=== PATIENT | female | born 1995 ===

== ENCOUNTER 2016-08-17 23:26 | Emergency (ER) | payer OTHER ==
[2016-08-18 00:09] VITALS: BP 118/63; PULSE 58; RESP 18; TEMP 98.1; O2SAT 100
--- NOTE | 2016-08-18 00:43 | ED PDOC ---
Arrival/HPI <Jn Mendez - Last Filed: 08/18/16 01:01> - General Historian: Patient <Rin Natarajan PA-C - Last Filed: 08/18/16 01:06> - General Chief Complaint: Back Pain Time Seen by Provider: 08/18/16 00:23 - History of Present Illness Narrative History of Present Illness (Text): 08/18/16 00:43 21-year-old female presents to the emergency room for low back pain for the past several days, reports that she did a home test today which was positive. Patient states that her last menstrual period was on July 13. Otherwise she denies any back pain, fever, chills, nausea, vomiting, urinary symptoms, vaginal bleeding or discharge. PMD none (Rin Natarajan PA-C) Past Medical History - Provider Review Nursing Documentation Reviewed: Yes - Cardiac Hx Heart Murmur: Yes - Pulmonary Hx Respiratory Disorders: No - Neurological Hx Neurological Disorder: No - HEENT Hx HEENT Disorder: No - Renal Hx Renal Disorder: No - Endocrine/Metabolic Hx Endocrine Disorders: No - Hematological/Oncological Hx Blood Disorders: No - Integumentary Hx Dermatological Disorder: No - Musculoskeletal/Rheumatological Hx Musculoskeletal Disorders: No - Gastrointestinal Hx Gastrointestinal Disorders: No - Genitourinary/Gynecological Hx Genitourinary Disorders: No - Psychiatric Hx Psychophysiologic Disorder: No Hx Substance Use: No - Surgical History Hx Tonsillectomy: Yes <Rin Natarajan PA-C - Last Filed: 08/18/16 01:06> Family/Social History - Physician Review Nursing Documentation Reviewed: Yes Family/Social History: No Known Family HX Smoking Status: Never Smoked Hx Alcohol Use: Yes Frequency of alcohol use: Socially Hx Substance Use: No <Rin Natarajan PA-C - Last Filed: 08/18/16 01:06> Allergies/Home Meds <Jn Mendez - Last Filed: 08/18/16 01:01> <Rin Natarajan PA-C - Last Filed: 08/18/16 01:06> Allergies/Adverse Reactions: Allergies No Known Allergies Allergy (Verified 08/18/16 00:09) Review of Systems - Review of Systems Constitutional: Normal. absent: Fatigue, Weight Change, Fevers Respiratory: Normal. absent: SOB, Cough, Sputum Cardiovascular: Normal. absent: Chest Pain, Palpitations, Edema Gastrointestinal: Normal. absent: Abdominal Pain, Stool Changes, Appetite Changes Genitourinary Female: Normal. absent: Dysuria, Frequency, Hematuria Musculoskeletal: Normal, Back Pain. absent: Arthralgias, Neck Pain Skin: Normal. absent: Rash, Pruritis, Skin Lesions <Rin Natarajan PA-C - Last Filed: 08/18/16 01:06> Physical Exam <Jn Mendez - Last Filed: 08/18/16 01:01> <Rin Natarajan PA-C - Last Filed: 08/18/16 01:06> - Physical Exam Narrative Physical Exam (Text): 08/18/16 00:42 GENERAL APPEARANCE: Patient is awake, alert, oriented x 3, in no acute distress. SKIN: Warm, dry; (-) cyanosis. EYES: (-) conjunctival pallor. ENMT: Mucous membranes moist. NECK: (-) tenderness, (-) stiffness, (-) lymphadenopathy. CHEST AND RESPIRATORY: (-) rales, (-) rhonchi, (-) wheezes; breath sounds equal bilaterally. HEART AND CARDIOVASCULAR: (-) irregularity; (-) murmur, (-) gallop. ABDOMEN AND GI: Soft; (-) tenderness. BACK: (-) midline or paravertebral tenderness, (-) CVA tenderness. EXTREMITIES: (-) deformity. NEURO AND PSYCH: Mental status as above; (-) focal findings. (Rin Natarajan PA-C) Vital Signs Temp Pulse Resp BP Pulse Ox 08/18/16 00:05 98.1 F 58 L 18 118/63 100 Medical Decision Making <Jn Mendez - Last Filed: 08/18/16 01:01> - Lab Interpretations I have reviewed the lab results: Yes <Rin Natarajan PA-C - Last Filed: 08/18/16 01:06> ED Course and Treatment: 08/18/16 00:41 21-year-old female presents to the emergency room for low back pain for the past several days, reports that she did a home test today which was positive. Based on history and physical to rule out UTI, consider musculoskeletal back pain. Uhcg (+). Plan - Urinalysis - Urine culture 08/18/16 01:03 Urinalysis shows no acute infection, urine culture sent. On reevaluation, patient is resting in bed comfortably in no acute distress. She still reports no abdominal pain or vaginal bleeding at this time. Urine results discussed with the patient in great detail. Patient advised to follow-up with an OB doctor in the next 2 days for reevaluation and follow-up. Prescription for vitamins prescribed to the patient and advised to only take Tylenol as needed for pain. Otherwise instructed to return to the ER at any time for any new or worsening symptoms. Patient states she fully agrees with and understands discharge instructions. States that she agrees with the plan and disposition. Verbalized and repeated discharge instructions and plan. I have given the patient opportunity to ask any additional questions. Follow up with OB physician in 1-2 days without fail. Advised to take medication as prescribed. Return to the emergency room at any time for any new or worsening symptoms. (Rin Natarajan PA-C) - Lab Interpretations Lab Results: Lab Results 08/18/16 00:10: Urine Color Yellow, Urine Appearance Clear, Urine pH 7.5, Ur Specific [place] 1.015, Urine Protein Negative, Urine Glucose (UA) Negative, Urine Ketones Negative, Urine Blood Negative, Urine Nitrate Negative, Urine Bilirubin Negative, Urine Urobilinogen 0.2, Ur Leukocyte Esterase Negative - PA / RENAL DIETITIAN / Resident Statement DEVON has reviewed & agrees with the documentation as recorded. DEVON has examined the patient and agrees with the treatment plan. <Jn Mendez - Last Filed: 08/18/16 01:01> - PA / RENAL DIETITIAN / Resident Statement DEVON has reviewed & agrees with the documentation as recorded. <Rin Natarajan PA-C - Last Filed: 08/18/16 01:06> Disposition/Present on Arrival <Jn Mendez - Last Filed: 08/18/16 01:01> - Present on Arrival Any Indicators Present on Arrival: No History of DVT/PE: No History of Uncontrolled Diabetes: No Urinary Catheter: No History of Decub. Ulcer: No History Surgical Site Infection Following: None - Disposition Have Diagnosis and Disposition been Completed?: Yes Disposition Time: 01:04 Patient Plan: Discharge <Rin Natarajan PA-C - Last Filed: 08/18/16 01:06> - Disposition Diagnosis: Back pain, Patient Problems: Current Active Problems Problem Status Onset Back pain Acute Acute Condition: STABLE Discharge Instructions (ExitCare): Back Pain (ED), First Trimester ( ED) Print Language: CHILEAN Additional Instructions: Thank you for letting us take care of you today. You were treated for back pain , . The emergency medical care you received today was directed at your acute symptoms. If you were prescribed any medication, please fill it and take as directed. It may take several days for your symptoms to resolve. Return to the Emergency Department if your symptoms worsen, do not improve, or if you have any other problems. Please contact OB doctor in 2 days for re-evaluation and follow up. Bring any paperwork you were given at discharge with you along with any medications you are taking to your follow up visit. Our treatment cannot replace ongoing medical care by a primary care provider (PCP) outside of the emergency department. Thank you for allowing the [facility] team to be part of your care today. Prescriptions: Multivit/Folic Acid/I [] 1 tab PO DAILY #30 tab Referrals: PCP,NO [Primary Care Provider] - Follow up with primary Lizeth Landrum MD [Staff Provider] - Follow up with primary Forms: WORK NOTE
[2016-08-18 00:46] LABS: PH,URINE 7.5 (4.7-8.0); URINE BILIRUBIN NEGATIVE (NEGATIVE); URINE BLOOD NEGATIVE (NEGATIVE); URINE GLUCOSE (UA) NEGATIVE (NEGATIVE); URINE LEUKOCYTE ESTERASE NEGATIVE Leu/uL (NEGATIVE); URINE NITRATE NEGATIVE (NEGATIVE); URINE PROTEIN NEGATIVE mg/dL (<30 mg/dL); URINE UROBILINOGEN 0.2 E.U./dL (<1 E.U./dL)
[2016-08-18 00:56] LABS: URINE APPEARANCE CLEAR (CLEAR); URINE COLOR YELLOW (YELLOW)
== END 2016-08-18 01:16 | disposition home or self-care (01) ==
LOC: ED 23:26
DX: O26.891 Other specified pregnancy related conditions, first trimester (principal); M54.9 Dorsalgia, unspecified; Z3A.00 Weeks of gestation of pregnancy not specified

== ENCOUNTER 2016-09-03 15:36 | Emergency (ER) | payer OTHER ==
[2016-09-03 15:45] VITALS: BMI 26.2
[2016-09-03 15:50] VITALS: TEMP 98.1
--- NOTE | 2016-09-03 16:18 | ED PDOC ---
Arrival/HPI <Thor Nguyen - Last Filed: 09/03/16 19:19> <Pete Truong - Last Filed: 09/03/16 20:18> - General Chief Complaint: Female Genitourinary Time Seen by Provider: 09/03/16 15:48 - History of Present Illness Narrative History of Present Illness (Text): 09/03/16 16:15 CC: vaginal bleeding This patient is a 21yo F who states her LMP was July 12, found out she was August 17, went to OBGYN visit today, states she has been spotting blood for the past 2 days. No cramps. No signs of products in the toilet, or blood in the toilet. Denies all other symptoms; denies fevers/chills, [place], CP , SOB, abdominal pain, N/V/D/ dysuria/freq/discharge/previous STI or lower extremity pain/swelling. States this is a desired . Pmhx: None; states has heart murmor; not followed by cardiology Meds: vitamins Surgeries: None Allergies: None FamHx: denies Social: Lives at home, not in school, denies smoking/etoh/ilicit drugs 09/03/16 16:17 (Thor Nguyen) Past Medical History - Provider Review Nursing Documentation Reviewed: Yes - Travel History Have you recently traveled outside [place] w/in the past 3 mons?: No - Past History Past History: No Previous - Infectious Disease Hx of Infectious Diseases: None - Cardiac Hx Cardiac Disorders: Yes Hx Heart Murmur: Yes - Pulmonary Hx Respiratory Disorders: No - Neurological Hx Neurological Disorder: No - HEENT Hx HEENT Disorder: No - Renal Hx Renal Disorder: No - Endocrine/Metabolic Hx Endocrine Disorders: No - Hematological/Oncological Hx Blood Disorders: No - Integumentary Hx Dermatological Disorder: No - Musculoskeletal/Rheumatological Hx Musculoskeletal Disorders: No - Gastrointestinal Hx Gastrointestinal Disorders: No - Genitourinary/Gynecological Hx Genitourinary Disorders: No - Psychiatric Hx Psychophysiologic Disorder: No Hx Substance Use: No - Surgical History Hx Tonsillectomy: Yes - Anesthesia Hx Anesthesia: Yes Hx Anesthesia Reactions: No <Thor Nguyen - Last Filed: 09/03/16 19:19> Family/Social History - Physician Review Nursing Documentation Reviewed: Yes Family/Social History: No Known Family HX Smoking Status: Never Smoked Hx Alcohol Use: Yes Hx Substance Use: No <Thor Nguyen - Last Filed: 09/03/16 19:19> Allergies/Home Meds <Thor Nguyen - Last Filed: 09/03/16 19:19> <Pete Truong - Last Filed: 09/03/16 20:18> Allergies/Adverse Reactions: Allergies No Known Allergies Allergy (Verified 09/03/16 15:45) Review of Systems - Review of Systems Constitutional: absent: Fatigue, Weight Change Eyes: absent: Vision Changes, Photophobia ENT: absent: Hearing Changes, Tinnitus Respiratory: absent: SOB, Cough Cardiovascular: absent: Chest Pain, Palpitations Gastrointestinal: Other (vaginal bleeding). absent: Abdominal Pain Genitourinary Female: Vaginal Bleeding. absent: Dysuria, Frequency Musculoskeletal: absent: Arthralgias Skin: absent: Rash, Pruritis Neurological: absent: Headache, Dizziness Endocrine: absent: Diaphoresis Hemo/Lymphatic: absent: Adenopathy Psychiatric: absent: Anxiety, Depression <Thor Nguyen - Last Filed: 09/03/16 19:19> Physical Exam Temperature: Afebrile Blood Pressure: Normal Pulse: Regular Respiratory Rate: Normal Appearance: Positive for: Well-Appearing, Non-Toxic, Comfortable Pain Distress: None Mental Status: Positive for: Alert and Oriented X 3 - Systems Exam Head: Present: Atraumatic Pupils: Present: PERRL Extroacular Muscles: Present: EOMI Conjunctiva: Present: Normal Mouth: Present: Moist Mucous Membranes Neck: Present: Normal Range of Motion Respiratory/Chest: Present: Clear to Auscultation, Good Air Exchange Cardiovascular: Present: Regular Rate and Rhythm, Murmurs (VSD type murmur ) Abdomen: Present: Normal Bowel Sounds. No: Tenderness, Distention Genitourinary/Pelvic Exam: Present: Normal External Genitalia, Cervical os Closed, Other (with female custom ski maker present, wonderful nurse Judy ). No: Vaginal Discharge, Vaginal Bleeding, Vaginal Lesions, Adenexal Tenderness, Adenexal Mass, Cervical Motion Tendernes, Odor Upper Extremity: Present: Normal Inspection. No: Cyanosis, Edema Lower Extremity: Present: Normal Inspection. No: Edema, CALF TENDERNESS Neurological: Present: GCS=15, CN II-XII Intact, Speech Normal Skin: Present: Warm Psychiatric: Present: Alert, Oriented x 3 <Thor Nguyen - Last Filed: 09/03/16 19:19> Vital Signs Reviewed: Yes <Pete Truong - Last Filed: 09/03/16 20:18> Vital Signs Temp Pulse Resp BP Pulse Ox 09/03/16 19:00 74 17 110/80 100 09/03/16 17:50 70 18 105/70 99 09/03/16 15:48 98.1 F 72 19 102/66 98 Medical Decision Making <Thor Nguyen - Last Filed: 09/03/16 19:19> <Pete Truong - Last Filed: 09/03/16 20:18> ED Course and Treatment: 09/03/16 16:20 Ultrasound Transvag ordered Pelvic exam unremarkable, no blood noted, cervical os closed, no adenexal or cervical motion tenderness noted Type and Screen, CBC, CMP, UA, Urine GC/chlym, Preg Test and Quantitative HCg ordered Bedside ultrasound did not reveal IUP; however 8 week not unusual for that; ovaries visualized with no cysts Reassses and disposition 09/03/16 17:38 Ultrasound shows intrauterine at 6weeks 4 days with strong heart beat at 145bpm UA shows UTI; will give Keflex here 500mg PO Advised to take keflex 500mg PO BID for 5 days total f/u w/ OBGYn as needed patient education given all questions answered case discussed with Dr. truong; patient is stable for discharge home Type and Screen showed A+ blood no rhogam is needed 09/03/16 19:07 (Thor Nguyen) A 21 year old female with vaginal spotting in . In agreement with resident note, which includes further HPI details. Patient was seen and evaluated with resident, came up with plan and treatment together. DDx: Threatened vs Miscarriage Patient's ultrasound reviewed. T&S A+. Patient comfortable and has no pain. She will f/u with her obgyn this week. (Pete Truong) - Lab Interpretations Lab Results: 09/03/16 16:30 09/03/16 16:30 Lab Results 09/03/16 18:27: Blood Type Confirm A POSITIVE 09/03/16 16:30: Sodium 137, Potassium 4.3, Chloride 103, Carbon Dioxide 24, Anion Gap 14, BUN 6 L, Creatinine 0.6, Est GFR ( Amer) > 60, Est GFR (Non -Af Amer) > 60, Random Glucose 88, Calcium 9.1, Total Bilirubin 0.7, AST 26, ALT 27, Alkaline Phosphatase 55, Total Protein 7.3, Albumin 4.0, Globulin 3.3, Albumin/Globulin Ratio 1.2 09/03/16 16:30: WBC 7.8, RBC 4.32, Hgb 13.3, Hct 37.7, MCV 87.3, MCH 30.8, MCHC 35.3, RDW 12.6, Plt Count 190, MPV 10.3, Gran % 75.1 H, Lymph % (Auto) 17.9 L, Kay % (Auto) 6.0, Eos % (Auto) 0.9 L, Baso % (Auto) 0.1, Gran # 5.83, Lymph # 1.4, Kay # 0.5, Eos # 0.1, Baso # 0.01 09/03/16 16:30: Blood Type A POSITIVE, Antibody Screen Negative, BBK History Checked No verified bt 09/03/16 16:30: Beta HCG, Quant 66537.00 H 09/03/16 16:30: Urine Color Yellow, Urine Appearance Clear, Urine pH 6.0, Ur Specific [place] <= 1.005, Urine Protein Negative, Urine Glucose (UA) Negative, Urine Ketones Negative, Urine Blood Small H, Urine Nitrate Negative, Urine Bilirubin Negative, Urine Urobilinogen 0.2, Ur Leukocyte Esterase Trace H, Urine RBC 0 - 2, Urine WBC 0 - 2, Ur Epithelial Cells 0 - 2, Urine Bacteria Neg , Urine HCG, Qual Positive - RAD Interpretation Radiology Orders: 09/03/16 16:11 OB TRANSVAGINAL [US] Stat - Medication Orders Current Medication Orders: Discontinued Medications Cephalexin Monohydrate (Keflex) 500 mg PO STAT STA PRN Reason: Protocol Stop: 09/03/16 17:34 Last Admin: 09/03/16 18:00 Dose: 500 mg <Thor Nguyen - Last Filed: 09/03/16 19:19> - PA / GENERAL ASSEMBLER / Resident Statement / has reviewed & agrees with the documentation as recorded. MD/ has examined the patient and agrees with the treatment plan. - Scribe Statement The provider has reviewed the documentation as recorded by the Scribe <Pete Truong - Last Filed: 09/03/16 20:18> - Scribe Statement Urmila Recinos Provider Scribe Attestation: All medical record entries made by the Scribe were at my direction and personally dictated by me. I have reviewed the chart and agree that the record accurately reflects my personal performance of the history, physical exam, medical decision making, and the department course for this patient. I have also personally directed, reviewed, and agree with the discharge instructions and disposition. (Peet Truong) Disposition/Present on Arrival - Present on Arrival Any Indicators Present on Arrival: No History of DVT/PE: No History of Uncontrolled Diabetes: No Urinary Catheter: No History of Decub. Ulcer: No History Surgical Site Infection Following: None - Disposition Have Diagnosis and Disposition been Completed?: Yes Disposition Time: 17:41 Patient Plan: Discharge <Thor Nguyen - Last Filed: 09/03/16 19:19> <Pete Truong - Last Filed: 09/03/16 20:18> - Disposition Diagnosis: UTI (urinary tract infection) Disposition: HOME/ ROUTINE Patient Problems: Current Active Problems Problem Status Onset UTI (urinary tract infection) Acute Condition: FAIR Additional Instructions: Please take your medication as indicated; Keflex; take one pill twice a day for a total of 5 days Please make sure to follow up with OBGYN as indicated If you continue to have vaginal bleeding or spotting and intense stomach cramps please go to the closest ER Prescriptions: Cephalexin [cephalexin] 500 mg PO BID #10 cap Forms: [employer] (Austrian)
[2016-09-03 17:21] LABS: URINE BILIRUBIN NEGATIVE (NEGATIVE); URINE BLOOD SMALL (NEGATIVE); URINE GLUCOSE (UA) NEGATIVE (NEGATIVE); URINE LEUKOCYTE ESTERASE TRACE Leu/uL (NEGATIVE); URINE NITRATE NEGATIVE (NEGATIVE); URINE PROTEIN NEGATIVE mg/dL (<30 mg/dL); URINE UROBILINOGEN 0.2 E.U./dL (<1 E.U./dL)
[2016-09-03 17:24] LABS: BASO # 0.01 K/mm3 (0.0-2.0); BASO % 0.1 % (0.0-3.0); EOS # 0.1 (0.0-0.7); EOS % 0.9 % (1.5-5.0); GRAN # 5.83 (1.4-6.5); GRAN % 75.1 % (50.0-68.0); HEMOGLOBIN 13.3 gm/dL (12.0-16.0); LYMPH # 1.4 (1.2-3.4); LYMPH % 17.9 % (22.0-35.0); MEAN CELL VOLUME 87.3 fL (80.0-105.0); MEAN CORPUSCULAR HEMOGLOBIN 30.8 pg (25.0-35.0); MEAN CORPUSCULAR HGB CONC 35.3 g/dl (31.0-37.0); MEAN PLATELET VOLUME 10.3 fl (7.0-11.0); MONO # 0.5 (0.1-0.6); PLATELET COUNT 190 10^3/uL (120.0-450.0); RBC 4.32 10^6/uL (3.5-6.1); RED CELL DISTRIBUTION WIDTH 12.6 % (11.5-14.5); WHITE BLOOD COUNT 7.8 10^3/ul (4.5-11.0)
[2016-09-03 17:25] LABS: ALB/GLOB RATIO 1.2 (1.1-1.8); ALT/SGPT 27 U/L (7-56); AST/SGOT 26 U/L (15-39); BLOOD UREA NITROGEN 6 mg/dL (7-21); CALCIUM 9.1 mg/dL (8.4-10.5); GFR AFRICAN-AMERICAN > 60; GFR NON-AFRICAN AMERICAN > 60
[2016-09-03 17:26] LABS: URINE APPEARANCE CLEAR (CLEAR); URINE COLOR YELLOW (YELLOW)
--- NOTE | 2016-09-03 17:30 | US ---
Indication: Bleeding Comparison: None available Technique: Transvaginal pelvic ultrasound Findings: The uterus measures approximately 10.2 x 5.2 x 6.7 cm. Anteverted. Cervix length measures approximately 4.0 cm. There is a single intrauterine fetus present. 2 mm yolk sac. The gestational sac measures 2.1 cm and is compatible with a gestational age of 6 weeks 4 days. The crown-rump length measures 0.6 cm and is compatible with a gestational age of 6 weeks 3 days. There is heart motion which measured 145 BPM. The right ovary measures 3.1 x 1.9 x 2.4 cm. The left ovary measures 3.4 x 1.4 x 3.0 cm. Blood flow was demonstrated to both ovaries. Impression: Live single intrauterine with estimated gestational age 6 weeks 4 days. heart rate 145 bpm. Advise an anomaly screen at 16-18 weeks gestational age
[2016-09-03 17:40] LABS: HCG,QUALITATIVE URINE POSITIVE (NEGATIVE); URINE BACTERIA NEG (NEG); URINE EPITHELIAL CELLS 0 - 2 /hpf (0-5); URINE RBC 0 - 2 /hpf (0-2); URINE WBC 0 - 2 /hpf (0-6)
[2016-09-03 19:43] VITALS: BP 110/80; PULSE 74; RESP 17; O2SAT 100
== END 2016-09-03 19:00 | disposition home or self-care (01) ==
LOC: ED 15:36
DX: O23.41 Unspecified infection of urinary tract in pregnancy, first trimester (principal); Z3A.01 Less than 8 weeks gestation of pregnancy

== ENCOUNTER 2016-09-08 18:34 | Emergency (ER) | payer OTHER ==
[2016-09-08 18:52] VITALS: BMI 26.0
[2016-09-08 18:58] VITALS: TEMP 97.9
--- NOTE | 2016-09-08 19:32 | ED PDOC ---
Arrival/HPI <Tohr Nguyen - Last Filed: 09/08/16 21:18> <Jn Mendez - Last Filed: 09/08/16 21:30> - General Chief Complaint: Female Genitourinary Time Seen by Provider: 09/08/16 19:01 - History of Present Illness Narrative History of Present Illness (Text): 09/08/16 19:29 CC: vaginal bleeding This patient is a 21yo F who states her LMP was July 12, found out she was August 17. She was seen last week in the ED by myself, had a pelvic exam which revealed a closed cervix, no products of conception in the vaginal vault, and a normal transvaginal ultrasound. She was instructed to follow up with her OBGYN upon discharge. However she states that since today she has been bleeding like her normal period, and was previously spotting. No cramps. No signs of products in the toilet, or blood in the toilet. Denies all other symptoms; denies fevers/chills, [place], CP, SOB, abdominal pain, N/V/D/ dysuria/freq /discharge/previous STI or lower extremity pain/swelling. States this is a desired . Pmhx: None; states has heart murmor; not followed by cardiology Meds: vitamins Surgeries: None Allergies: None FamHx: denies Social: Lives at home, not in school, denies smoking/etoh/ilicit drugs (Thor Nguyen) Past Medical History - Provider Review Nursing Documentation Reviewed: Yes - Travel History Have you recently traveled outside [place] w/in the past 3 mons?: No - Past History Past History: No Previous - Infectious Disease Hx of Infectious Diseases: None - Cardiac Hx Cardiac Disorders: Yes Hx Heart Murmur: Yes - Pulmonary Hx Respiratory Disorders: No - Neurological Hx Neurological Disorder: No - HEENT Hx HEENT Disorder: No - Renal Hx Renal Disorder: No - Endocrine/Metabolic Hx Endocrine Disorders: No - Hematological/Oncological Hx Blood Disorders: No - Integumentary Hx Dermatological Disorder: No - Musculoskeletal/Rheumatological Hx Musculoskeletal Disorders: No - Gastrointestinal Hx Gastrointestinal Disorders: No - Genitourinary/Gynecological Hx Genitourinary Disorders: No - Psychiatric Hx Psychophysiologic Disorder: No Hx Substance Use: No - Surgical History Hx Tonsillectomy: Yes - Anesthesia Hx Anesthesia: Yes Hx Anesthesia Reactions: No Hx Malignant Hyperthermia: No <Thor Nguyen - Last Filed: 09/08/16 21:18> Family/Social History - Physician Review Nursing Documentation Reviewed: Yes Family/Social History: No Known Family HX Smoking Status: Never Smoked Hx Alcohol Use: Yes Hx Substance Use: No <GregoriaSeanricoThor jimenez - Last Filed: 09/08/16 21:18> Allergies/Home Meds <LeonardoricoThor - Last Filed: 09/08/16 21:18> <Jn Mendez - Last Filed: 09/08/16 21:30> Allergies/Adverse Reactions: Allergies No Known Allergies Allergy (Verified 09/03/16 15:45) Review of Systems - Physician Review All systems were reviewed & negative as marked: Yes - Review of Systems Constitutional: absent: Fatigue, Weight Change Eyes: absent: Vision Changes, Photophobia ENT: absent: Hearing Changes Respiratory: absent: SOB, Cough Cardiovascular: absent: Chest Pain Gastrointestinal: absent: Abdominal Pain (blood from vagina) Genitourinary Female: absent: Dysuria, Frequency Musculoskeletal: absent: Arthralgias Skin: absent: Rash, Pruritis Neurological: absent: Headache Endocrine: absent: Diaphoresis Hemo/Lymphatic: absent: Adenopathy Psychiatric: absent: Anxiety, Depression <GregoriaSeanricoThor jimenez - Last Filed: 09/08/16 21:18> Physical Exam Temperature: Afebrile Blood Pressure: Normal Pulse: Regular Respiratory Rate: Normal Appearance: Positive for: Well-Appearing, Non-Toxic Pain Distress: None Mental Status: Positive for: Alert and Oriented X 3 - Systems Exam Head: Present: Atraumatic Pupils: Present: PERRL Extroacular Muscles: Present: EOMI Conjunctiva: Present: Normal Mouth: Present: Moist Mucous Membranes Neck: Present: Normal Range of Motion Respiratory/Chest: Present: Clear to Auscultation, Good Air Exchange Cardiovascular: Present: Regular Rate and Rhythm. No: Murmurs Abdomen: Present: Normal Bowel Sounds. No: Tenderness, Distention Genitourinary/Pelvic Exam: Present: Normal External Genitalia, Vaginal Bleeding , Cervical os Closed. No: Vaginal Discharge, Vaginal Lesions, Adenexal Tenderness, Adenexal Mass, Cervical Motion Tendernes, Odor, Other (with female assessment expert present, her nurse Scarlet, a pelvic exam was performed. Bleeding was noted from the OS, no signs of discharge, OS was closed, no adnexal tenderness, no cervical motion tenderness) Back: No: CVA Tenderness Upper Extremity: Present: Normal Inspection. No: Cyanosis, Edema Lower Extremity: Present: Normal Inspection. No: Edema Neurological: Present: GCS=15, CN II-XII Intact Skin: Present: Warm <Thor Nguyen - Last Filed: 09/08/16 21:18> Medical Decision Making <Thor Nguyen - Last Filed: 09/08/16 21:18> <Jn Mendez - Last Filed: 09/08/16 21:30> ED Course and Treatment: 09/08/16 19:33 Patient was treated for UTI with Kefflex will order CBC CMP UA type and screen will do pelvic and order transvaginal US DDx: Threatened vs missed vs inevitable 09/08/16 19:45 09/08/16 20:42 CBC and CMP unchanged from previous visit no anemia pending type and screen pending ultrasound read patient is comfortably sitting in bed in no acute distress with VSS 09/08/16 21:13 UA shows Leuk Esterase; patient is still on keflex from previous d/c will continue this 09/08/16 21:15 Ultrasound showed: Gestation: Single live intrauterine gestation. heart rate of 142 beats per minute. Vilonia-rump length of 1.44 cm, correlating with gestational age of 7 weeks 5 days. Uterus/cervix: No subchorionic hemorrhage. No cervical dilatation or effacement. Ovaries: Normal ovaries. No adnexal masses. Free fluid: No significant free fluid. IMPRESSION: 1. Single live intrauterine gestation. 2. Incidental/non-acute findings are described above 09/08/16 21:18 The patient is stable for discharge as per Dr. Mendez The patient is agreeable with d/c She has an OBGYN appointment tomorrow She finishes her antibiotics tonight; the patient will get a f/u UA at her OBGYN for her appointment tomorrow (Thor Nguyen) In agreement with resident note, which includes further HPI details. Patient was seen and evaluated with resident, came up with plan and treatment together. (Jn Mendez) - Lab Interpretations Lab Results: 09/08/16 20:00 09/08/16 20:00 Lab Results 09/08/16 20:00: Urine Color Yellow, Urine Appearance Sl cloudy, Urine pH 6.0, Ur Specific [place] 1.020, Urine Protein 30 H, Urine Glucose (UA) Negative, Urine Ketones Negative, Urine Blood Large H, Urine Nitrate Negative, Urine Bilirubin Negative, Urine Urobilinogen 0.2, Ur Leukocyte Esterase Small H, Urine RBC 1 - 3, Urine WBC 5 - 10, Ur Epithelial Cells 4 - 5, Urine Bacteria Mod 09/08/16 20:00: Blood Type Pending, Antibody Screen Pending, BBK History Checked Patient has bt 09/08/16 20:00: Sodium 137, Potassium 3.7, Chloride 102, Carbon Dioxide 26, Anion Gap 13, BUN 6 L, Creatinine 0.5, Est GFR ( Amer) > 60, Est GFR (Non -Af Amer) > 60, Random Glucose 90, Calcium 8.8, Total Bilirubin 0.3, AST 31, ALT 25, Alkaline Phosphatase 54, Total Protein 7.3, Albumin 4.1, Globulin 3.2, Albumin/Globulin Ratio 1.3 09/08/16 20:00: WBC 9.1, RBC 4.37, Hgb 13.4, Hct 38.0, MCV 87.0, MCH 30.7, MCHC 35.3, RDW 12.7, Plt Count 203, MPV 10.1, Gran % 69.3 H, Lymph % (Auto) 23.1, Stephens % (Auto) 6.3 H, Eos % (Auto) 1.2 L, Baso % (Auto) 0.1, Gran # 6.27, Lymph # 2.1, Stephens # 0.6, Eos # 0.1, Baso # 0.01 - RAD Interpretation Radiology Orders: 09/08/16 19:44 OB TRANSVAGINAL [US] Stat - PA / ONLINE MERCHANDISING SPECIALIST / Resident Statement / has reviewed & agrees with the documentation as recorded. / has examined the patient and agrees with the treatment plan. <Jn Mendez - Last Filed: 09/08/16 21:30> Disposition/Present on Arrival - Present on Arrival Any Indicators Present on Arrival: No History of DVT/PE: No History of Uncontrolled Diabetes: No Urinary Catheter: No History of Decub. Ulcer: No History Surgical Site Infection Following: None - Disposition Have Diagnosis and Disposition been Completed?: Yes Disposition Time: 21:19 Patient Plan: Discharge <Thor Nguyen - Last Filed: 09/08/16 21:18> <Jn Mendez - Last Filed: 09/08/16 21:30> - Disposition Diagnosis: Uterine bleeding Disposition: HOME/ ROUTINE Patient Problems: Current Active Problems Problem Status Onset Uterine bleeding Acute Condition: FAIR Discharge Instructions (ExitCare): Threatened Miscarriage (ED)
[2016-09-08 20:24] LABS: BASO # 0.01 K/mm3 (0.0-2.0); BASO % 0.1 % (0.0-3.0); EOS # 0.1 (0.0-0.7); EOS % 1.2 % (1.5-5.0); GRAN # 6.27 (1.4-6.5); GRAN % 69.3 % (50.0-68.0); HEMOGLOBIN 13.4 gm/dL (12.0-16.0); LYMPH # 2.1 (1.2-3.4); LYMPH % 23.1 % (22.0-35.0); MEAN CORPUSCULAR HEMOGLOBIN 30.7 pg (25.0-35.0); MEAN CORPUSCULAR HGB CONC 35.3 g/dl (31.0-37.0); MEAN PLATELET VOLUME 10.1 fl (7.0-11.0); MONO # 0.6 (0.1-0.6); MONO % 6.3 % (1.0-6.0); PLATELET COUNT 203 10^3/uL (120.0-450.0); RBC 4.37 10^6/uL (3.5-6.1); RED CELL DISTRIBUTION WIDTH 12.7 % (11.5-14.5); WHITE BLOOD COUNT 9.1 10^3/ul (4.5-11.0)
[2016-09-08 20:33] LABS: ALB/GLOB RATIO 1.3 (1.1-1.8); ALBUMIN 4.1 g/dL (3.0-4.8); ALT/SGPT 25 U/L (7-56); AST/SGOT 31 U/L (15-39); BLOOD UREA NITROGEN 6 mg/dL (7-21); CALCIUM 8.8 mg/dL (8.4-10.5); GFR AFRICAN-AMERICAN > 60; GFR NON-AFRICAN AMERICAN > 60
[2016-09-08 20:56] LABS: URINE BILIRUBIN NEGATIVE (NEGATIVE); URINE BLOOD LARGE (NEGATIVE); URINE GLUCOSE (UA) NEGATIVE (NEGATIVE); URINE LEUKOCYTE ESTERASE SMALL Leu/uL (NEGATIVE); URINE NITRATE NEGATIVE (NEGATIVE); URINE PROTEIN 30 mg/dL (<30 mg/dL); URINE UROBILINOGEN 0.2 E.U./dL (<1 E.U./dL)
[2016-09-08 21:03] VITALS: RESP 17; O2SAT 100
[2016-09-08 21:09] LABS: URINE APPEARANCE SL CLOUDY (CLEAR); URINE COLOR YELLOW (YELLOW)
[2016-09-08 21:12] LABS: URINE BACTERIA MOD (NEG)
--- NOTE | 2016-09-08 21:13 | US ---
EXAM: US First Trimester, Transabdominal CLINICAL HISTORY: 21 years old, female; Pain; complicated by abdominal or pelvic pain; Lower; First trimester; Gestational age or lmp: 07/13/2016; ; Additional info: Vaginal bleeding TECHNIQUE: Real-time transabdominal obstetrical ultrasound of the maternal pelvis and a first trimester with image documentation. COMPARISON: US - OB TRANSVAGINAL 09/03/2016 4:49:49 PM FINDINGS: Gestation: Single live intrauterine gestation. heart rate of 142 beats per minute. Finzel-rump length of 1.44 cm, correlating with gestational age of 7 weeks 5 days. Uterus/cervix: No subchorionic hemorrhage. No cervical dilatation or effacement. Ovaries: Normal ovaries. No adnexal masses. Free fluid: No significant free fluid. IMPRESSION: 1. Single live intrauterine gestation. 2. Incidental/non-acute findings are described above. EXAM: US , Transvaginal CLINICAL HISTORY: 21 years old, female; Pain; complicated by abdominal or pelvic pain; Lower; First trimester; Gestational age or lmp: 07/13/2016; ; Additional info: Vaginal bleeding TECHNIQUE: Real-time transvaginal obstetrical ultrasound of the maternal pelvis and a first trimester with image documentation. Transvaginal imaging was used for better evaluation of the fetus and adnexa. COMPARISON: US - OB TRANSVAGINAL 09/03/2016 4:49:49 PM FINDINGS: Gestation: Single live intrauterine gestation. heart rate of 142 beats per minute. Finzel-rump length of 1.44 cm, correlating with gestational age of 7 weeks 5 days. Uterus/cervix: No subchorionic hemorrhage. No cervical dilatation or effacement. Ovaries: Normal ovaries. No adnexal masses. Free fluid: No significant free fluid.
[2016-09-08 22:05] VITALS: BP 110/62; PULSE 80
== END 2016-09-08 22:06 | disposition home or self-care (01) ==
LOC: ED 18:34
DX: O46.91 Antepartum hemorrhage, unspecified, first trimester (principal); Z3A.01 Less than 8 weeks gestation of pregnancy